=== PATIENT | male | born 1990 | race Caucasian/White ===

== ENCOUNTER 2023-04-02 09:08 | Emergency (ER) | payer OTHER, SELFPAY ==
--- NOTE | ~2023-04-02 | XR_ITS ---
XR finger 5th LT min 2V DATE: 04/02/2023 10:53 INDICATION: Fifth digit laceration TECHNIQUE: 3 views COMPARISON: None FINDINGS: No fracture or dislocation, periosteal reaction or bone destruction, radiopaque soft tissue foreign body or subcutaneous emphysema is detected. IMPRESSION: Negative Reviewed, dictated and finalized at location A. [employer] IMPRESSION: Negative
[2023-04-02 09:16] VITALS: BP 145/93; PULSE 69; RESP 16; TEMP 36.4; O2SAT 100
[2023-04-02] MEDS: TETANUS,DIPHTHERIA,AC PERTUSSIS ADULT (0.5 ML) BOOSTRIX IM (09:46)
--- NOTE | 2023-04-02 11:12 | ED.WOUNDLAC ---
HPI - Wound/Laceration General Chief Complaint: Wound/Laceration Stated Complaint: finger lac Time Seen by Provider: 04/02/23 09:37 Source: patient Mode of arrival: ambulatory Limitations: no limitations History of Present Illness HPI narrative: Patient is a 32-year-old male who presents to the ED with report of a laceration to his left 5th digit. Patient reports a glass jar fell this morning off of his gun safe and he attempted to catch the jar. The jar broke and a piece of the glass cut his L 5th digit. No other injuries. Sensation intact. No numbness or tingling. Tetanus status unknown. Related Data Home Medications Medication Instructions Recorded Confirmed venlafaxine 150 mg 150 mg PO DAILY 04/02/23 04/02/23 capsule,extended release 24 hr Allergies Allergy/AdvReac Type Severity Reaction Status Date / Time No Known Allergies Allergy Mild Verified 04/02/23 10:26 Review of Systems Review of Systems: CONSTITUTIONAL: Denies fever, chills, or sweats. SKIN: See HPI. NEUROLOGIC: Denies numbness, or weakness. All systems reviewed & are unremarkable except as noted in HPI and below Exam Narrative: GENERAL: Well appearing, well-nourished, non-toxic, in no acute distress. HEAD: Normocephalic, atraumatic. RESPIRATORY: Airway patent, respirations nonlabored. CARDIOVASCULAR: Regular rate and rhythm. MUSCULOSKELETAL: Moves all extremities. No gross deformities. Normal flexion and extension finger. No evidence of tendon injury. Sensation intact. SKIN: Warm, dry, normal color. 2.5cm laceration to flexor surface of L 5th digit from PIP joint extending towards lateral edge of MCP joint. No active bleeding. NEURO: A&O X3. Speech clear. Cranial nerves II-XII grossly intact. Steady gait. No ataxic movements. PSYCHIATRIC: Appropriate mood and affect. Normal interaction. Course Vital Signs Vital signs: Vital Signs Temperature 97.6 F 04/02/23 09:16 Pulse Rate 69 04/02/23 09:16 Respiratory Rate 16 04/02/23 09:16 Blood Pressure 145/93 H 04/02/23 09:16 Pulse Oximetry 100 04/02/23 09:16 Oxygen Delivery Room Air 04/02/23 09:16 Temperature 97.6 F 04/02/23 09:16 Pulse Rate 69 04/02/23 09:16 Respiratory Rate 16 04/02/23 09:16 Blood Pressure 145/93 H 04/02/23 09:16 Pulse Oximetry 100 04/02/23 09:16 Oxygen Delivery Room Air 04/02/23 09:16 Procedures Laceration Laceration 1: Date: 04/02/23 Time: 11:40 Site: hand Side (If applicable): left (5th digit) Size (cm): 2.5 Description: linear Depth: simple, single layer Local Anesthetic: lidocaine 1% Amount of anesthesia used (mL): 8 Pre-repair: wound explored, irrigated and irrigated extensively ====== Skin Level ====== Skin layer closed with: nylon Size (cm): 5-0 Number of sutures: 7 Technique: simple, interrupted ====== Subcutaneous Layer ====== ====== Muscle Layer ====== ====== Tendon Layer ====== MDM - Wound/Laceration MDM Narrative Medical decision making narrative: X-ray without evidence of foreign body or fracture. Laceration repaired without complication. Tetanus updated. Patient given wound care instructions and reasons to return to the ED. D/C in stable condition. Medical Records Attestation: I reviewed the patient's medical records. Imaging Data Attestation: I personally reviewed and interpreted this imaging study as follows: Radiologist's impression: ITS Impressions Finger X-Ray 04/02/23 11:22 IMPRESSION: Negative Discharge Plan Discharge Clinical Impression: Laceration of finger of left hand Qualifiers: Encounter type: initial encounter Finger: little finger Damage to nail status: without damage Foreign body presence: without foreign body Qualified Code(s): S61.217A - Laceration without foreign body of left little finger without damage to nail, initial encount
== END 2023-04-02 12:33 | disposition home or self-care (01) ==
PROVIDERS: Emergency Provider Physician Assistant
DX: S61.217A Laceration without foreign body of left little finger without damage to nail, initial encounter (principal); Z23 Encounter for immunization; W25.XXXA Contact with sharp glass, initial encounter
CPT/HCPCS: 12001; 73140; 90471; 90715; 99283